=== PATIENT | male | born 1990 | race Caucasian/White ===

== ENCOUNTER 2016-10-04 16:29 | Inpatient (IN) | payer SELFPAY ==
--- NOTE | ~2016-10-04 | DS ---
Unit #: [id number] #: [id number] Patient: BRIE LEAL [id number] [facility] [address] [place] [address] [id number] MR#: [id number] NAME: BRIE LEAL ROOM: [facility] Age: 26 Sex: M Admission Date: 10/04/2016 : 1990 Discharge Date: 10/08/2016 Attending Physician: David Mckeon M.D. Primary Care Physician: Primary Care Physician No DISCHARGE SUMMARY REASON FOR ADMISSION Detox. DIAGNOSTIC STUDIES LABORATORY RESULTS: Unremarkable except AST 46 and ALT 63. HOSPITAL COURSE The patient was admitted to inpatient unit on 10/04/2016 and discharged on 10/08/2016. The patient was treated with group therapy, individual therapy, medication management, detox protocol, and detox monitoring. The patient was responsive to treatment, showed some improvement. Subsequently, the patient was discharged with a plan to follow up in outpatient program. DISCHARGE MEDICATIONS None. DISCHARGE DIAGNOSES Psychiatric: Opioid use disorder, severe, F11.20; mood disorder, not otherwise specified, F32.9. Secondary diagnosis: Deferred. Medical diagnosis: None. Stressors: Psychosocial stressors. DISCHARGE INSTRUCTIONS The patient to follow up in outpatient clinic as per social media content manager. CONDITION ON DISCHARGE The patient was pleasant and cooperative. Denied any psychotic symptom or any suicidal ideation. PROGNOSIS Guarded. DIET AND ACTIVITY As tolerated. Dictated by... David Mckeon M.D. Unit #: [id number] #: [id number] Patient: BRIE LEAL SZC/modl TD: 10/08/2016 17:45 JOB #: [id number] DISCHARGE SUMMARY Page 1 of 1 X David Mckeon MD X DISCHARGE SUMMARY
--- NOTE | ~2016-10-04 | PA ---
Unit #: [id number] #: [id number] Patient: BRIE LEAL [id number] [facility] [address] [place] [address] [id number] MR#: [id number] NAME: BRIE LEAL ROOM: [facility] Age: 26 Sex: M Admission Date: 10/04/2016 : 1990 Date of Assessment: 10/05/2016 Attending Physician: David Mckeon M.D. Admitting Physician: David Mckeon M.D. Primary Care Physician: Primary Care Physician No PSYCHIATRIC ASSESSMENT INFORMANTS The patient reliability, fair informant and chart reliability, good. CHIEF COMPLAINT Here for detox. HISTORY OF PRESENT ILLNESS Mr. Brie Leal is a 26-year-old male, presented with the above-mentioned complaint. The patient reported that he is using drugs, having detox symptoms, needing detox. The patient reported using 0.5 g of heroin daily for the last 4 years. The patient reported IV drug abuse. Reported using IV daily. The patient reported last use of heroin on 10/03/2016. The patient reported abusing Xanax, reported on average takes 4 bars daily. Currently, denied any suicidal or homicidal ideation. Denied any psychotic symptom. Lives alone, poor support system. Reported high school education, but completed GED. The patient currently unemployed. Needing inpatient admission at this time for psychiatric stabilization. PAST PSYCHIATRIC HISTORY Remarkable for [facility]. Currently [facility]. FAMILY HISTORY AND SOCIAL HISTORY The patient is currently homeless. Poor support system. MEDICAL HISTORY Unremarkable for any chronic medical illness. Musculoskeletal; muscle strength and tone, no atrophy or abnormal movement. Gait normal. MEDICATION HISTORY None. ALLERGIES No known drug allergies. SUBSTANCE ABUSE HISTORY Tobacco use, age of onset 13; alcohol, age of onset 13; marijuana, age of onset 13; opioid, age of onset 22; and amphetamine, age of onset 22. Longest period of sobriety 8 months, last period of sobriety unknown. The patient currently reporting muscle cramping, irritability, restlessness, diarrhea, nervousness, poor appetite, poor concentration, and tremors. Unit #: [id number] #: [id number] Patient: BRIE LEAL REVIEW OF SYSTEMS HEENT: Eyes, clear. Ears, nose, mouth, and throat; clear. CARDIOVASCULAR: Unremarkable. RESPIRATORY: Unremarkable. GI: Unremarkable. : Unremarkable. SKIN: Unremarkable. LYMPH NODE: Unremarkable. NEUROLOGIC: Unremarkable. ENDOCRINE: Unremarkable. HEMATOLOGIC: Unremarkable. ALLERGIC/IMMUNOLOGIC: Unremarkable. MUSCULOSKELETAL: Muscle strength and tone, no atrophy or abnormal movement. Gait normal. MENTAL STATUS EXAMINATION CONSTITUTIONAL: Measurement of vital signs; temperature 97.9, heart rate 91, respiratory rate 20, and blood pressure 141/74. Height 6 feet and weight 180 pounds. GENERAL APPEARANCE: The patient dressed casually. The patient did not show any facial deformity. MUSCULOSKELETAL: Please see above. PSYCHIATRIC EXAMINATION Description of speech; regular rate, normal volume, normal articulation, and coherent. Description of thought process, goal directed. Description of association, intact. Description of abnormal psychotic thinking; the patient denied any hallucinations or delusions, but mood lability. Description of the patient's judgment: Concerning everyday activity, poor. Social situation, poor. Concerning psychiatric condition, poor. Complete mental status examination; oriented in time, place, and person. Recent and remote memory, fair. Attention span and concentration, fair. Language, able to name object and repeat phrases. Fund of knowledge, aware of current event and passive vocabulary intact. Mood and affect, sad and dysphoric. Insight and judgment, fair to poor. ASSETS AND LIABILITIES Assets, the patient is articulate and able to take care of his ADL. Liability, history of substance abuse and depression. ADMITTING DIAGNOSES Psychiatric: Opioid use disorder, severe, F11.20 and mood disorder, not otherwise specified, F32.9. Secondary diagnosis: Deferred. Medical diagnosis: None. Stressors: Psychosocial stressor. PSYCHIATRIC PLAN AND TREATMENT GOAL AND DISCHARGE PLAN 1. Advised to admit the patient on the inpatient unit. Provide safe, supportive, and structured environment. 2. Ordered labs; CBC, CMP, UA, and UDS. 3. Detox protocol and detox monitoring. 4. If needed, consider further adjustment of medication. The patient to attend all the programing, group therapy, individual therapy, and chemical Unit #: [id number] #: [id number] Patient: BRIE LEAL dependency group. TREATMENT GOAL To attain euthymic mood, gain insight into his problem, and learn coping skills. DISCHARGE PLAN Plan to stabilize the patient and consider followup in outpatient program. ESTIMATED LENGTH OF STAY 3 to 5 days. Dictated by... Maryellen Dawn/gagan TD: 10/05/2016 18:35 JOB #: [id number] PSYCHIATRIC ASSESSMENT Page 1 of 1 X David Mckeon MD PSYCHIATRIC ASSESSMENT
--- NOTE | ~2016-10-04 | HP ---
Unit #: [id number] #: [id number] Patient: BRIE LEAL [id number] [place] [address] [id number] MR#: [id number] NAME: BRIE LEAL ROOM: 85 Age: 26 Sex: M Admission Date: 10/04/2016 : 1990 Attending Physician: David Mckeon M.D. Admitting Physician: David Mckeon M.D. Primary Care Physician: Primary Care Physician No HISTORY AND PHYSICAL HISTORY OF PRESENT ILLNESS Brie is a 26-year-old male admitted to [facility] on 10/04/2016 for detox from heroin, meth, Xanax and marijuana. PAST MEDICAL HISTORY None. PAST SURGICAL HISTORY None. SOCIAL HISTORY Smokes one pack of cigarettes daily. Denies alcohol use. Does report use of heroin, methamphetamine and Xanax and marijuana daily. He is currently single and homeless. FAMILY HISTORY Noncontributory. REVIEW OF SYSTEMS CONSTITUTIONAL: No fever or chills. HEENT: Denies any sore throat, ear pain or runny nose. CARDIOVASCULAR: Denies chest pain, irregular heart rhythm or palpitations. CHEST: Denies shortness of breath or cough. No hemoptysis. GASTROINTESTINAL: Denies nausea, vomiting, diarrhea or chronic constipation. ENDOCRINE: Denies history of increased thirst or urination. No recent significant weight loss or gain. GENITOURINARY: Denies dysuria, frequency, or hematuria. SKIN: Denies any rashes. HEMATOLOGIC: Denies history of increased bleeding or bruising. MUSCULOSKELETAL: Denies any hot, swollen joints. No generalized muscle pain. NEUROLOGIC: Denies problems with vision or speech. No frequent, severe headaches. No numbness, tingling or weakness in any extremities. Denies loss of bladder or bowel control. CURRENT MEDICATIONS (1) . PHYSICAL EXAMINATION GENERAL: Alert, oriented, in no acute distress. VITAL SIGNS: Blood pressure 141/74, heart rate 91, temperature 97.9, respirations 20. Unit #: [id number] #: [id number] Patient: BRIE LEAL HEIGHT: 6 foot 0 inches. WEIGHT: 180 pounds. SKIN: Warm and dry without rash or lesion. HEENT: Normocephalic. TMs not viewed. Oral and nasal passages clear. Conjunctivae clear. PERRLA. EOMs intact. NECK: Supple without lymphadenopathy or thyromegaly. HEART: Regular rate and rhythm without murmur. LUNGS: Clear. ABDOMEN: Soft, nontender, without masses or hepatosplenomegaly. : Not done. EXTREMITIES: No evidence of cyanosis, clubbing or edema. Moves all without focal deficit. NEUROLOGICAL: Grossly within normal limits. Cranial Nerves: II: Visual dent are intact. III, IV AND : Extraocular movements are intact. Pupils are equal, round and reactive to light. V: Facial sensation is grossly normal. VII: Facial movements and expression are normal. VIII: Auditory acuity grossly intact. IX, X: Uvula is midline. Phonation is normal. XI: Patient shrugs shoulders and turns head normally. XII: Tongue protrudes in the midline. Sensory and Motor Function: Sensory and motor sensation is grossly normal. Motor: moves all extremities well. Coordination: Gait is normal. Deep Tendon Reflexes: Intact. IMPRESSION Psychiatric admission. RECOMMENDATIONS Psychiatric, per psychiatrist. MEDICAL: I see no contraindications to participating in facility's activities. MEDICAL PROGNOSIS Good. MEDICAL CONDITION Stable. *REPORT FAXED TO THE OFFICE OF DEION ROYAL APRN ON 10/07/16 FOR MEDICATION VERIFICATION. CD Dictated by... Renzo Rosenberg/mercy TD: 10/06/2016 23:44 JOB #: [id number] Unit #: [id number] #: [id number] Patient: BRIE LEAL HISTORY AND PHYSICAL Page 1 of 1 X DEION ROYAL APRN X HISTORY AND PHYSICAL
--- NOTE | ~2016-10-04 | PN ---
Unit #: [id number] #: [id number] Patient: BRIE LEAL [id number] [facility] [address] [place] [address] [id number] I MR#: [id number] NAME: BRIE LEAL ROOM: [facility] Age: 26 Sex: M Admission Date: 10/04/2016 : 1990 Attending Physician: David Mckeon M.D. Admitting Physician: David Mckeon M.D. Primary Care Physician: Primary Care Physician Haley BARTH PROGRESS NOTES DATE 10/06/2016 DISCUSSION Mr. Lozada is a 26-year-old male. The patient interviewed, chart reviewed. Obtained information from nursing staff. The patient was compliant and cooperative. Mood sad, dysphoric, flat affect, guarded. The patient tolerating medication fairly well. Making progress. The patient was using multiple drugs drug of choice was opiate and amphetamine. Complete review of systems unremarkable. MENTAL STATUS EXAMINATION General appearance, the patient dressed casually. Attention span and concentration fair. Oriented to time, place and person. Mood and affect labile. Speech monotone. Thought process concrete. The patient denied any thoughts of harming self or others. Recent and remote memory poor. Insight and judgement poor. DIAGNOSES 1. Opiate use disorder severe. 2. Amphetamine use disorder severe. ASSESSMENT/PLAN Advise to continue with current medication and therapeutic protocol. If needed consider further adjustment of medication. Dictated by... Maryellen Dawn/mercy TD: 10/09/2016 02:27 JOB #: [id number] Unit #: [id number] #: [id number] Patient: BRIE LEAL PROGRESS NOTES Page 1 of 1 X David Mckeon MD PROGRESS NOTE
--- NOTE | ~2016-10-04 | PN ---
Unit #: [id number] #: [id number] Patient: BRIE LEAL [id number] [facility] [address] [place] [address] [id number] MR#: [id number] NAME: BRIE LEAL ROOM: [facility] Age: 26 Sex: M Admission Date: 10/04/2016 : 1990 Attending Physician: David Mckeon M.D. Admitting Physician: David Mckeon M.D. Primary Care Physician: Primary Care Physician Haley BARTHOLOMEW NOTES DATE OF SERVICE: 10/07/2016 DISCUSSION Mr. Lozada is a 26-year-old male, seen on 10/07/2016. The patient interviewed, chart reviewed, and obtained information from nursing staff. The patient was compliant and cooperative. Mood somewhat sad, dysphoric, anxious. The patient reports that he is still having tremors, anxious, not quite ready to discharge; therefore, discharge was canceled. The patient's vital signs; temperature 98.3, pulse 76, respirations 18, and blood pressure 130/65. MENTAL STATUS EXAMINATION Complete review of systems unremarkable. MENTAL STATUS EXAMINATION General appearance, the patient dressed casually. Attention span and concentration, fair. Oriented in place and person. Mood and affect, labile. Speech, monotone. Thought process, concrete. The patient denied any thoughts of harming self or others. Recent and remote memory, poor. Insight and judgment, poor. DIAGNOSES 1. Opioid use disorder, severe. 2. Amphetamine use disorder, severe. ASSESSMENT/PLAN Advised to continue with current detox protocol. Continue with the inpatient programing. If needed, consider further adjustment of medication. Dictated by... Maryellen Dawn/gagan TD: 10/08/2016 00:56 JOB #: [id number] Unit #: [id number] #: [id number] Patient: BRIE LEAL TAB BARTHOLOMEW NOTES Page 1 of 1 X David Mckeon MD PROGRESS NOTE
[2016-10-05 11:36] LABS: BASOPHIL% 0.7 % (0-2.5); EOSINOPHIL# 0.3 X10e3 (0-0.7); EOSINOPHIL% 4.2 % (0.0-7.0); HEMATOCRIT 40.8 % (38.0-50.0); HEMOGLOBIN 13.4 gm/dL (13.0-16.0); LYMPHOCYTE# 2.2 X10e3 (1.0-3.5); MEAN CELL VOLUME 84.4 FL (83-96); MEAN CORPUSCULAR HEMOGLOBIN 27.7 PG (28-34); MEAN CORPUSCULAR HGB CONC 32.8 g/dL (30-36); MEAN PLATELET VOLUME 9.7 FL (6.5-11.5); MONOCYTE# 0.4 X10e3 (0-1.0); MONOCYTE% 5.8 % (3.0-12.0); NEUTROPHIL# 4.1 X10e3 (1.5-7.1); NEUTROPHIL% 58.3 % (40-75); PLATELET COUNT 220 X10e3 (140-420); RED BLOOD COUNT 4.84 X10e (3.90-5.60); RED CELL DISTRIBUTION WIDTH 14.1 % (11.0-15.5)
[2016-10-05 11:43] LABS: DIFF IND NO
[2016-10-05 12:08] LABS: ALBUMIN SERUM 3.5 g/dL (3.5-5.0); BILIRUBIN,TOTAL 0.2 mg/dL (0.2-2.0); CALCIUM SERUM 8.9 mg/dL (8.4-10.2); CREATININE SERUM 0.8 mg/dL (0.6-1.4); GLOM FILT RATE Estimated 122.5 mL/min (>60); POTASSIUM 3.7 mmol/L (3.5-5.1); PROTEIN TOTAL SERUM 6.9 g/dL (6.0-8.3)
== END 2016-10-08 13:10 | disposition home or self-care (01) | DRG 897 ==
LOC: P1E 19:02
PROVIDERS: Psychiatry & Neurology Psychiatry
PROC: HZ2ZZZZ Detoxification Services for Substance Abuse Treatment (ICD-10-PCS; principal; 2016-10-04)
DX: F11.20 Opioid dependence, uncomplicated (principal); F15.20 Other stimulant dependence, uncomplicated; F39 Unspecified mood [affective] disorder; F17.210 Nicotine dependence, cigarettes, uncomplicated; Z59.0 Homelessness
CPT/HCPCS: 80053; 85025; 86592